=== PATIENT | female | born 1935 | race Caucasian/White ===

== ENCOUNTER 2018-06-17 12:44 | Emergency (ER) | payer OTHER ==
[~2018-06-17] VITALS: Ht 157.5 cm; Wt 77.1 kg
[2018-06-17] MEDS ORDERED: ELIQUIS2.5 MG (13:08)
[2018-06-17] MEDS ORDERED: FLUTICASONE PR (13:08)
[2018-06-17] MEDS ORDERED: FUROSEMIDE20 MG (13:08)
[2018-06-17] MEDS ORDERED: ATORVASTATIN CA20 MG (13:08)
[2018-06-17] MEDS ORDERED: METFORMIN HCL500 MG (13:08)
[2018-06-17] MEDS ORDERED: METOPROLOL SUCC25 MG (13:08)
[2018-06-17] MEDS ORDERED: PANTOPRAZOLE SO40 MG (13:09)
[2018-06-17] MEDS ORDERED: ASPIR 8181 MG (13:09)
== END 2018-06-17 16:19 | disposition home or self-care (01) ==
LOC: ER 12:44
DX: S30.0XXA Contusion of lower back and pelvis, initial encounter (principal); M62.830 Muscle spasm of back; W20.8XXA Other cause of strike by thrown, projected or falling object, initial encounter; Y93.89 Activity, other specified; Y92.018 Other place in single-family (private) house as the place of occurrence of the external cause; Y99.8 Other external cause status

== ENCOUNTER 2019-11-08 10:40 | Emergency (ER) | payer OTHER ==
[~2019-11-08] VITALS: Ht 157.5 cm; Wt 81.6 kg
[~2019-11-08 10:40] MED LIST: ASPIR 8181 MG; ATORVASTATIN CA20 MG; ELIQUIS2.5 MG; FLUTICASONE PR; FUROSEMIDE20 MG; METFORMIN HCL500 MG; METOPROLOL SUCC25 MG; PANTOPRAZOLE SO40 MG
[2019-11-08] MEDS ORDERED: AZITHROMYCIN500 MG PO (11:04)
[2019-11-08] MEDS ORDERED: ENALAPRIL MALEA20 MG PO (11:04)
[2019-11-08] MEDS ORDERED: ELIQUIS5 MG PO (11:05)
[2019-11-08] MEDS ORDERED: LEVSIN/SL0.125 MG SL (16:39)
[2019-11-08] MEDS ORDERED: KETO10TA2 PO (16:39)
== END 2019-11-08 17:11 | disposition home or self-care (01) ==
LOC: ER 10:40
DX: R31.0 Gross hematuria (principal); K57.30 Diverticulosis of large intestine without perforation or abscess without bleeding; R10.32 Left lower quadrant pain; R07.89 Other chest pain; Z03.818 Encounter for observation for suspected exposure to other biological agents ruled out

== ENCOUNTER 2020-06-19 14:03 | Inpatient (IN) | payer OTHER ==
[~2020-06-19] VITALS: Ht 165.1 cm; Wt 81.6 kg
[~2020-06-19 14:03] MED LIST changes: +AZITHROMYCIN500 MG PO; +ELIQUIS5 MG PO; +ENALAPRIL MALEA20 MG PO; +KETO10TA2 PO; +LEVSIN/SL0.125 MG SL
[2020-06-19] MEDS ORDERED: PROTONIX40 MG PO (14:22)
[2020-06-19] MEDS ORDERED: LASIX20 MG PO (14:22)
[2020-06-19] MEDS ORDERED: XIGDUO XR 10 M1 EAC1 PO (14:23)
[2020-06-19] MEDS ORDERED: TOPROL XL50 M1 PO (14:23)
[2020-06-19] MEDS ORDERED: ZOLOFT100 MG PO (14:23)
[2020-06-19] MEDS ORDERED: METFORMIN HCL1000 M2 PO (14:23)
== END 2020-07-01 20:30 | disposition home or self-care (01) | DRG 438 ==
LOC: ER 14:03 → SEC-K 20:50 → SURG 20:50 → SURG-SUITE 06-20 20:02 → SURG 06-20 20:31 → MEDJ 06-21 16:29 → SURG 06-21 16:36 → MEDI 06-28 13:21
PROVIDERS: ADMIT Internal Medicine; ATTEND Internal Medicine
PROC: BF37ZZZ Magnetic Resonance Imaging (MRI) of Pancreas (ICD-10-PCS; 2020-06-21)
PROC: 0F798DZ Dilation of Common Bile Duct with Intraluminal Device, Via Natural or Artificial Opening Endoscopic (ICD-10-PCS; principal; 2020-06-23)
PROC: 02HV33Z Insertion of Infusion Device into Superior Vena Cava, Percutaneous Approach (ICD-10-PCS; 2020-06-27)
PROC: 0FD98ZX Extraction of Common Bile Duct, Via Natural or Artificial Opening Endoscopic, Diagnostic (ICD-10-PCS; 2020-06-28)
DX: K85.10 Biliary acute pancreatitis without necrosis or infection (principal); K83.1 Obstruction of bile duct; K55.039 Acute (reversible) ischemia of large intestine, extent unspecified; I48.20 Chronic atrial fibrillation, unspecified; N39.0 Urinary tract infection, site not specified; B37.0 Candidal stomatitis; K81.0 Acute cholecystitis; Z79.01 Long term (current) use of anticoagulants; I10 Essential (primary) hypertension; Z20.822 Contact with and (suspected) exposure to COVID-19; B96.29 Other Escherichia coli [E. coli] as the cause of diseases classified elsewhere; D64.9 Anemia, unspecified; E11.65 Type 2 diabetes mellitus with hyperglycemia; E11.319 Type 2 diabetes mellitus with unspecified diabetic retinopathy without macular edema; Z79.84 Long term (current) use of oral hypoglycemic drugs